=== PATIENT | female | born 1985 | race Caucasian/White ===

== ENCOUNTER 2019-10-09 12:28 | Emergency (ER) | payer MEDICAID ==
[~2019-10-09] VITALS: Ht 162.6 cm; Wt 65.0 kg
[2019-10-09] MEDS ORDERED: ACETAMINOPHEN 325MG TABLET PO ONE (13:00)
[2019-10-09 14:00] VITALS: BP 108/70
== END 2019-10-09 14:07 | disposition home or self-care (01) ==
LOC: ER 12:28
DX: J02.9 Acute pharyngitis, unspecified (principal)
CPT/HCPCS: 87070; 87430; 99283